=== PATIENT | female | born 1980 | race Caucasian/White ===

== ENCOUNTER 2018-08-02 15:19 | Emergency (ER) | payer OTHER ==
[~2018-08-02] VITALS: Ht 157.5 cm; Wt 56.7 kg
[2018-08-02] MEDS ORDERED: ZYRTEC10 M3 (15:38)
== END 2018-08-02 20:01 | disposition home or self-care (01) ==
LOC: ER 15:19
DX: O20.0 Threatened abortion (principal)

== ENCOUNTER 2018-08-29 06:16 | Emergency (ER) | payer OTHER ==
[~2018-08-29] VITALS: Ht 157.5 cm; Wt 61.2 kg
[~2018-08-29 06:16] MED LIST: ZYRTEC10 M3
[2018-08-29] MEDS ORDERED: PRENATABS RX T1 EACH (06:24)
== END 2018-08-29 11:31 | disposition home or self-care (01) ==
LOC: ER 06:16
DX: O26.891 Other specified pregnancy related conditions, first trimester (principal); R10.2 Pelvic and perineal pain; Z34.01 Encounter for supervision of normal first pregnancy, first trimester

== ENCOUNTER → 2018-08-30 | Outpatient (CLI) | payer OTHER ==
[~2018-08-30] MED LIST changes: +PRENATABS RX T1 EACH
== END | disposition home or self-care (01) ==
LOC: PRENATAL 10:59
DX: O99.011 Anemia complicating pregnancy, first trimester (principal); O42.911 Preterm premature rupture of membranes, unspecified as to length of time between rupture and onset of labor, first trimester